=== PATIENT | female | born 1985 | race Caucasian/White ===

== ENCOUNTER 2023-11-08 15:30 | Outpatient (CLI) | payer OTHER, SELFPAY ==
--- NOTE | ~2023-11-08 | XR_ITS ---
3 VIEWS PARANASAL SINUSES Ordering provider: Olga Suarez APRN History: . J34.9 - Unspecified disorder of nose and nasal sinuses . Comparison: None. FINDINGS: BONES: No acute fracture as visualized. PARANASAL SINUSES: Well aerated. No air fluid levels. SOFT TISSUES: Normal. IMPRESSION: NO EVIDENCE OF SINUS DISEASE. Reviewed, dictated and finalized at location A.
== END 2023-11-08 15:31 | disposition home or self-care (01) ==
LOC: ANHBWCIMG 15:31
PROVIDERS: PCP Nurse Practitioner Adult Health; Visit Provider Nurse Practitioner Adult Health
DX: J34.9 Unspecified disorder of nose and nasal sinuses (principal)
CPT/HCPCS: 70220

== ENCOUNTER 2024-05-23 08:06 | Outpatient (CLI) | payer OTHER, SELFPAY ==
--- OUTSIDE RECORDS SUMMARY | 2024-05-23 08:15 | XMS_ITS | Continuity of Care Document ---
Author Organization 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 [address] , [address], [place], [address], [place]. tel:[phone] Family History Family Member Type Diagnosis Age At Onset No Information Payers Payer name Insurance type Covered libertarian ID Authoriza tion(s) Medicaid [facility] [id number] Social History Type Description Quantity Date Captured Comments Sex Female Smoking Status No Information Chief Complaint And Reason For Visit No Information Reason For Referral Reason For Referral No Information History Of Present Illness Encounter Date Complaint History Of Prese nt Illness No Information Functional Status Date Functional Assessmen t No Information Instructions Date Instruction Additional Infor mation No Information Assessments Type Assessment Date No Information Patient Care Teams Name Effective Dates (start - stop) Status Members No Information
--- OUTSIDE RECORDS SUMMARY | 2024-05-23 08:15 | XMS_ITS | Data Portability ---
Author Organization [facility], Main Office Address [address] [place] [address] Assessment No assessment recorded. Plan of Treatment Reminders Order Date Submit Date Provider Last Modified By Organization Details Last Modified Time Details Appointments None recorded. Lab None recorded. Referral None recorded. Procedures None recorded. Surgeries None recorded. Imaging None recorded. Medication Orders spironolact one 50 mg tablet [address] [employer] #[id number], [address] [place], [place], [id number], 3 15:52:15 Mounjaro 5 mg/0.5 mL subcutaneou s pen injector 2022 023 [facility] [employer] #[id number], [address] [place], [place], [id number], 3 15:41:23 Unithroid 25 mcg tablet 2022 023 [facility] [employer] #[id number], [address] [place], [place], [id number], 3 15:46:38 Patient TargetsNo targets recorded. Patient InstructionsNo instructions recorded. Reason for Referral None Reported. Results Created Date Observation Date Name Description Value Unit Range Abnormal Flag Note LastModifiedBy Organization Detail LastModifiedTime 04/04/20 21 04/09/2021 SPECI MEN STATU S REPOR T specimen status report tnp [facility] was unabl e to colle ct suffi cient speci men to perfo rm the follo wing test( s), and is provi ding the patie nt with re-co llect ion instr uctio ns. Test not perfo rmed. Attem pts to conta ct your facil ity were unsuc cessf ul. TEST: 30417 1 DHEA- Sulfa te(2 Speci mens) 37539 8 Corti vinnie (3 Speci mens) Not Available [facility] ([facility]) [address] [facility], [place], [address], 04/09/2021 20:08:19 04/04/20 21 04/04/2021 AMBIG ABBRE V CMP14 DEFAU LT ambig abbrev CMP14 default commen t A hand- writt en panel /prof ile was recei naseem from your offic e. In accor dance with the [facility] Ambig uous Test Code Polic y dated October 2002, we have compl eted your order by using the close st curre ntly or forme rly recog nized AMA panel . We have assig lane Compr ehens dona Metab olic Panel (14), Test Code #32[address]. If this is not the testi ng you wishe d to recei ve on this speci men, pleas e conta ct the [facility] Clien t Inqui ry/Te chnic al Servi nancy Depar tment to patrice fy the test order . We appre ciate your busin ess. Not Available [facility] ([facility]) [address] [facility], [place], [address], 04/09/2021 20:08:18 04/04/20 21 04/05/2021 THYRO ID PEROX IDASE (TPO) AB thyroid peroxidase (tpo) Ab 11 IU/mL 0-34 Not Available [facility] ([facility]) [address] [facility], [place], [address], 04/09/2021 20:08:18 04/04/20 21 04/05/2021 INSUL IN insulin 41.5 uIU/m L 2.6-24 .9 above high normal Not Available [facility] ([facility]) [address] [facility], [place], [address], 04/09/2021 20:08:18 04/04/20 21 04/05/2021 VITAM IN D, 25-HY DROXY vitamin D, 25-hydroxy 21.1 NG/mL 30.0-1 00.0 below low normal Vitam in D defic iency has been defin ed by the Insti tute of Medic ine and an Endoc rine Socie ty pract ice guide line as a level of serum 25-OH vitam in D less than 20 ng/mL (1,2) . The Endoc rine Socie ty went on to furth er defin e vitam in D insuf ficie ncy as a level betwe en 21 and 29 ng/mL (2). 1. IOM (Inst itute of Medic ine). 2010. Dieta ry refer ence intak es for calci um and D. Mukul fitzpatrick [place]: The [facility] . 2. Colby simon MF, Emanuel corbin [place], Sharon off-F errar i SAWYER, et al. Evalu ation , treat ment, and preve ntion of vitam in D defic iency : an Endoc rine Socie ty clini barbara pract ice guide line. JCEM. 2010; 96(7) :1911 -30. Not Available [facility] ([facility]) [address] [facility], [place], [address], 04/09/2021 20:08:17 04/04/20 21 04/05/2021 ACTH, PLASM A acth, plasma 55.9 pg/mL 7.2-63 .3 ACTH refer ence inter cody for sampl es colle cted betwe en 7 and 10 AM. Not Available [facility] ([facility]) [address] [facility], [place], [address], 04/09/2021 20:08:17 04/04/20 21 04/05/2021 THYRO XINE (T4) FREE, DIREC T T4,free(dire ct) 0.91 NG/dL 0.82-1 .77 Not Available [facility] ([facility]) [address] [facility], [place], [address], 04/09/2021 20:08:16 04/04/20 21 04/07/2021 THYRO ID STIMU LATIN G HORMO NE TSH-icma 2.7 uu/mL Refer ence Range : Non-P regna nt Adult 0.450 -4.50 0 Pregn sade First Trime ster 0.100 -4.00 0 Secon d Trime ster 0.200 -4.00 0 Third Trime ster 0.300 -4.50 0 Not Available [facility] [address] [facility], [place], [address], 04/09/2021 20:08:16 04/04/20 21 04/09/2021 CORTI VINNIE (3 SPECI MENS) cortisol #1 (base) tnp ug/dL [facility] was unabl e to colle ct suffi cient speci men to perfo rm the follo wing test( s), and is provi ding the patie nt with re-co llect ion instr uctio ns. Corti vinnie AM 6.2 - 19.4 Corti vinnie PM 2.3 - 11.9 Not Available [facility] ([facility]) [address] [facility], [place], [address], 04/09/2021 20:08:16 04/04/20 21 04/09/2021 CORTI VINNIE (3 SPECI MENS) cortisol #2 tnp Test not perfo rmed Not Available [facility] ([facility]) [address] [place], [address], 04/09/2021 20:08:16 04/04/20 21 04/09/2021 CORTI VINNIE (3 SPECI MENS) cortisol #3 tnp Test not perfo rmed Not Available [facility] ([facility]) [address] [place], [address], 04/09/2021 20:08:16 04/04/20 21 04/07/2021 A1C W/GLY COMAR K(R) REFLE X Hb A1C diabetic assessment 5.6 %Hb Note: A refle x test was order ed on this speci men. If A1c resul ts are betwe en a value of 6.0 to 8.0 (incl uding 6.0 and 8.0), Glyco Alf testi ng is perfo rmed. Glyco Alf refle cts post prand ial gluco se spike s from the past 2 weeks , where as A1c refle cts avera ge glyce jamaal contr ol over the past 3 month s. Refer ence Range : Celia l: <5.7 Incre ased risk for diabe fanny: 5.7 - 6.4 Ongoi ng Hyper glyce paxton: >6.4 Glyce jamaal contr ol for adult s with diabe fanny: <7.0 (ADA) Not Available [facility] [address] [place], [address], 04/09/2021 20:08:15 04/04/20 21 04/07/2021 A1C W/GLY COMAR K(R) REFLE X estimated average glucose 114 mg/dL Not Available [facility] [address] [facility], [place], [address], 04/09/2021 20:08:15 04/04/20 21 04/07/2021 A1C W/GLY COMAR K(R) REFLE X glycomark(R) (1,5 Ag) tnp ug/mL Testi ng Not Indic ated Refle x not perfo rmed Glyco Alf( TM) is inten ded for use with manag ing glyce jamaal contr ol in diabe tic patie nts. A low resul t corre spond s to high gluco se peaks . 1, 5-AG blood level s can be affec zoran by clini barbara condi tions or medic ation s. Pleas e refer to the direc tory of servi nancy or [facility] websi te test menu for detai led list of limit ation s. Not Available [facility] [address] [facility], [place], [address], 04/09/2021 20:08:15 04/04/20 21 04/09/2021 DHEA- SULFA TE(2 SPECI MENS) DHEA-sulfate #1 tnp ug/dL [facility] was unabl e to colle ct suffi cient speci men to perfo rm the follo wing test( s), and is provi ding the patie nt with re-co llect ion instr uctio ns. 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 METAB OLIC PANEL (14) glucose 80 mg/dL 65-99 Not Available [facility] ([facility]) [address] [place], [address], 04/09/2021 20:08:14 04/04/20 21 04/05/2021 COMP. METAB OLIC PANEL (14) BUN 12 mg/dL 6-20 Not Available [facility] ([facility]) [address] [facility], [place], [address], 04/09/2021 20:08:14 04/04/20 21 04/05/2021 COMP. METAB OLIC PANEL (14) creatinine 0.77 mg/dL 0.57-1 .00 Not Available [facility] ([facility]) [address] [facility], [place], [address], 04/09/2021 20:08:14 04/04/20 21 04/05/2021 COMP. METAB OLIC PANEL (14) eGFR if nonafricn AM 102 mL/mi n/1.7 3 >59 Not Available [facility] ([facility]) [address] [facility], [place], [address], 04/09/2021 20:08:14 04/04/20 21 04/05/2021 COMP. METAB OLIC PANEL (14) eGFR if africn AM 117 mL/mi n/1.7 3 >59 In accor dance with recom menda tions from the NKF-A SN Task force , [facility] is in the proce ss of updat ing its eGFR calcu latio n to the 2020 CKD-E PI creat inine equat ion that estim ates kidne y funct ion witho ut a race varia ble. Not Available [facility] ([facility]) [address] [facility], [place], [address], 04/09/2021 20:08:14 04/04/20 21 04/05/2021 COMP. METAB OLIC PANEL (14) BUN/creatini ne ratio 16 9-23 Not Available [facility] ([facility]) [address] [facility], [place], [address], 04/09/2021 20:08:14 04/04/20 21 04/05/2021 COMP. METAB OLIC PANEL (14) sodium 138 mmol/ L 134-14 4 Not Available [facility] ([facility]) [address] [place], [address], 04/09/2021 20:08:14 04/04/20 21 04/05/2021 COMP. METAB OLIC PANEL (14) potassium 4.4 mmol/ L 3.5-5. 2 Not Available [facility] ([facility]) [address] [facility], [address], 04/09/2021 20:08:14 04/04/20 21 04/05/2021 COMP. METAB OLIC PANEL (14) chloride 102 mmol/ L 96-106 Not Available [facility] ([facility]) [address] [facility], [place], [address], 04/09/2021 20:08:14 04/04/20 21 04/05/2021 COMP. METAB OLIC PANEL (14) carbon dioxide, total 24 mmol/ L 20-29 Not Available [facility] ([facility]) [address] [place], [address], 04/09/2021 20:08:14 04/04/20 21 04/05/2021 COMP. METAB OLIC PANEL (14) calcium 9.4 mg/dL 8.7-10 .2 Not Available [facility] ([facility]) [address] [place], [address], 04/09/2021 20:08:14 04/04/20 21 04/05/2021 COMP. METAB OLIC PANEL (14) protein, total 6.8 g/dL 6.0-8. 5 Not Available [facility] ([facility]) [address] [place], [address], 04/09/2021 20:08:14 04/04/20 21 04/05/2021 COMP. METAB OLIC PANEL (14) albumin 4.3 g/dL 3.8-4. 8 Not Available [facility] ([facility]) [address] [facility], [address], 04/09/2021 20:08:14 04/04/20 21 04/05/2021 COMP. METAB OLIC PANEL (14) globulin, total 2.5 g/dL 1.5-4. 5 Not Available [facility] ([facility]) [address] [facility], [address], 04/09/2021 20:08:14 04/04/20 21 04/05/2021 COMP. METAB OLIC PANEL (14) A/G ratio 1.7 1.2-2. 2 Not Available [facility] ([facility]) [address] [facility], [place], [address], 04/09/2021 20:08:14 04/04/20 21 04/05/2021 COMP. METAB OLIC PANEL (14) bilirubin, total 0.6 mg/dL 0.0-1. 2 Not Available [facility] ([facility]) [address] [facility] [place], [address], 04/09/2021 20:08:14 04/04/20 21 04/05/2021 COMP. METAB OLIC PANEL (14) alkaline phosphatase 71 IU/L 44-121 Ple ase note refer ence mode gutierres e Not Available [facility] ([facility]) [address] [facility], [address], 04/09/2021 20:08:14 04/04/20 21 04/05/2021 COMP. METAB OLIC PANEL (14) AST (SGOT) 22 IU/L 0-40 Not Available [facility] ([facility]) [address] [facility], [place], [address], 04/09/2021 20:08:14 04/04/20 21 04/05/2021 COMP. METAB OLIC PANEL (14) ALT (SGPT) 38 IU/L 0-32 above high normal Not Available [facility] ([facility]) [address] [facility], [place], [address], 04/09/2021 20:08:14 04/04/20 21 04/05/2021 CBC/D IFF AMBIG UOUS DEFAU LT WBC 7.1 x10e3 /uL 3.4-10 .8 Not Available [facility] ([facility]) [address] [facility], [place], [address], 04/09/2021 20:08:14 04/04/20 21 04/05/2021 CBC/D IFF AMBIG UOUS DEFAU LT RBC 4.60 x10e6 /uL 3.77-5 .28 Not Available [facility] ([facility]) [address] [facility], [place], [address], 04/09/2021 20:08:14 04/04/20 21 04/05/2021 CBC/D IFF AMBIG UOUS DEFAU LT hemoglobin 13.7 g/dL 11.1-1 5.9 Not Available [facility] ([facility]) [address] [facility], [place], [address], 04/09/2021 20:08:14 04/04/20 21 04/05/2021 CBC/D IFF AMBIG UOUS DEFAU LT hematocrit 42.0 % 34.0-4 6.6 Not Available [facility] ([facility]) [address] [facility], [place], [address], 04/09/2021 20:08:14 04/04/20 21 04/05/2021 CBC/D IFF AMBIG UOUS DEFAU LT MCV 91 fL 79-97 Not Available [facility] ([facility]) [address] [facility], [place], [address], 04/09/2021 20:08:14 04/04/20 21 04/05/2021 CBC/D IFF AMBIG UOUS DEFAU LT MCH 29.8 pg 26.6-3 3.0 Not Available [facility] ([facility]) [address] [facility], [place], [address], 04/09/2021 20:08:14 04/04/20 21 04/05/2021 CBC/D IFF AMBIG UOUS DEFAU LT MCHC 32.6 g/dL 31.5-3 5.7 Not Available [facility] ([facility]) [address] [facility], [place], [address], 04/09/2021 20:08:14 04/04/20 21 04/05/2021 CBC/D IFF AMBIG UOUS DEFAU LT RDW 12.9 % 11.7-1 5.4 Not Available [facility] ([facility]) [address] [facility], [place], [address], 04/09/2021 20:08:14 04/04/20 21 04/05/2021 CBC/D IFF AMBIG UOUS DEFAU LT platelets 290 x10e3 /uL 150-45 0 Not Available [facility] ([facility]) [address] [facility], [place], [address], 04/09/2021 20:08:14 04/04/20 21 04/05/2021 CBC/D IFF AMBIG UOUS DEFAU LT neutrophils 63 % not estab. Not Available [facility] ([facility]) [address] [facility], [place], [address], 04/09/2021 20:08:14 04/04/20 21 04/05/2021 CBC/D IFF AMBIG UOUS DEFAU LT lymphs 28 % not estab. Not Available [facility] ([facility]) [address] [facility], [place], [address], 04/09/2021 20:08:14 04/04/20 21 04/05/2021 CBC/D IFF AMBIG UOUS DEFAU LT monocytes 7 % not estab. Not Available [facility] ([facility]) [address] [facility], [place], [address], 04/09/2021 20:08:14 04/04/20 21 04/05/2021 CBC/D IFF AMBIG UOUS DEFAU LT eos 1 % not estab. Not Available [facility] ([facility]) [address] [facility], [place], [address], 04/09/2021 20:08:14 04/04/20 21 04/05/2021 CBC/D IFF AMBIG UOUS DEFAU LT basos 1 % not estab. Not Available [facility] ([facility]) [address] [place], [address], 04/09/2021 20:08:14 04/04/20 21 04/05/2021 CBC/D IFF AMBIG UOUS DEFAU LT immature cells autistic teacher Not Available [facility] ([facility]) [address] [place], [address], 04/09/2021 20:08:14 04/04/20 21 04/05/2021 CBC/D IFF AMBIG UOUS DEFAU LT neutrophils (absolute) 4.5 x10e3 /uL 1.4-7. 0 Not Available [facility] ([facility]) [address] [place], [address], 04/09/2021 20:08:14 04/04/20 21 04/05/2021 CBC/D IFF AMBIG UOUS DEFAU LT lymphs (absolute) 2.0 x10e3 /uL 0.7-3. 1 Not Available [facility] ([facility]) [address] [place], [address], 04/09/2021 20:08:14 04/04/20 21 04/05/2021 CBC/D IFF AMBIG UOUS DEFAU LT monocytes(ab solute) 0.5 x10e3 /uL 0.1-0. 9 Not Available [facility] ([facility]) [address] [place], [address], 04/09/2021 20:08:14 04/04/20 21 04/05/2021 CBC/D IFF AMBIG UOUS DEFAU LT eos (absolute) 0.1 x10e3 /uL 0.0-0. 4 Not Available [facility] ([facility]) [address] [facility], [place], [address], 04/09/2021 20:08:14 04/04/20 21 04/05/2021 CBC/D IFF AMBIG UOUS DEFAU LT baso (absolute) 0.1 x10e3 /uL 0.0-0. 2 Not Available [facility] ([facility]) [address] [facility], [place], [address], 04/09/2021 20:08:14 04/04/20 21 04/05/2021 CBC/D IFF AMBIG UOUS DEFAU LT immature granulocytes 0 % not estab. Not Available [facility] ([facility]) [address] [place], [address], 04/09/2021 20:08:14 04/04/20 21 04/05/2021 CBC/D IFF AMBIG UOUS DEFAU LT immature grans (abs) 0.0 x10e3 /uL 0.0-0. 1 Not Available [facility] ([facility]) [address] [facility], [place], [address], 04/09/2021 20:08:14 04/04/20 21 04/05/2021 CBC/D IFF AMBIG UOUS DEFAU LT NRBC autistic teacher Not Available [facility] ([facility]) [address] [facility], [place], [address], 04/09/2021 20:08:14 04/04/20 21 04/05/2021 CBC/D IFF AMBIG UOUS DEFAU LT hematology comments: autistic teacher A hand- writt en panel /prof ile was recei naseem from your offic e. In accor dance with the [facility] Teresita nugent Test Code Polic y dated October 2002, we have assig lane CBC with Diffnavid alvarez al/Linda haywood, Test Code #[address]. If this is not the testi ng you wishe d to recei ve on this speci men, pleas e conta ct the [facility] Clien t Inqui ry/ Techn ical Servi anncy Depar tment to patrice fy the test order . We appre ciate your busin ess. Not Available [facility] ([facility]) [address] [facility], [place], [address], 04/09/2021 20:08:14 04/04/20 21 04/05/2021 FE+TI BC+FE R iron bind.cap.(TI BC) 340 ug/dL 250-45 0 Not Available [facility] ([facility]) [address] [place], [address], 04/09/2021 20:08:13 04/04/20 21 04/05/2021 FE+TI BC+FE R UIBC 236 ug/dL 131-42 5 Not Available [facility] ([facility]) [address] [place], [address], 04/09/2021 20:08:13 04/04/20 21 04/05/2021 FE+TI BC+FE R iron 104 ug/dL 27-159 Not Available [facility] ([facility]) [address] [place], [address], 04/09/2021 20:08:13 04/04/20 21 04/05/2021 FE+TI BC+FE R iron saturation 31 % 15-55 Not Available [facility] ([facility]) [address] [place], [address], 04/09/2021 20:08:13 04/04/20 21 04/05/2021 FE+TI BC+FE R ferritin 81 NG/mL 15-150 Not Available [facility] ([facility]) [address], [place], [address], 04/09/2021 20:08:13 04/30/19 22 05/02/2021 SARS- COV-2 (COVI D-19) , KORY/L C sars cov-2 (covid-19) RNA, KORY not detect ed not detect ed This nucle ic acid ampli ficat ion test was devel oped and its perfo rmanc e seymour cteri stics deter mined by [facility] Labor atori es. Nucle ic acid ampli ficat ion tests inclu de RT- PCR and TMA. This test has not been FDA clear ed or appro naseem. This test has been autho rized by FDA under an Emerg ency Use Autho rizat ion (EUA) . This test is only autho rized for the durat ion of time the decla ratio n that circu mstan nancy exist justi fying the autho rizat ion of the emerg ency use of in vitro diagn ostic tests for detec tion of SARS- CoV-2 virus and/o r diagn osis of COVID -19 infec tion under secti on 564(b )(1) of the Act, 21 U.S.C . 360bb b-3(b ) (1), unles s the autho rizat ion is termi nated or revok ed soone r. When diagn ostic testi ng is negat dona, the possi bilit y of a false negat dona resul t shoul d be consi dered in the gideon xt of a patie nt's recen t expos ures and the prese nce of clini barbara signs and sympt oms consi stent with COVID -19. An indiv idual witho ut sympt oms of COVID -19 and who is not alicia ing SARS- CoV-2 virus would expec t to have a negat dona (not detec zoran) resul t in this assay . Perfo rmed at: [facility] [place] [address], [place] [address] [address] Lab Direc tor: George farley MD, Phone : [phone] Not Available [facility] (Lab) [address] [place], [address], 05/02/2021 16:14:28 04/30/19 22 05/02/2021 SARS- COV-2 (COVI D-19) , KORY/L C sars-cov-2 KORY 2 day tat perfor med Perfo rmed at: [facility] [place] [address] Lab Direc tor: Dino moffett PhD, Phone : [phone] Not Available [facility] (Lab) [address] [place], [address], 05/02/2021 16:14:28 08/19/19 23 08/18/2022 COMPR EHENS DONA METAB OLIC PANEL sodium 140 mmol/ L 137-14 5 Not Available [facility] (Lab) [address] [place], [address], 08/18/2022 13:01:51 08/19/19 23 08/18/2022 COMPR EHENS DONA METAB OLIC PANEL potassium 4.3 mmol/ L 3.5-5. 1 Not Available [facility] (Lab) [address] [place], [address], 08/18/2022 13:01:51 08/19/19 23 08/18/2022 COMPR EHENS DONA METAB OLIC PANEL chloride 104 mmol/ L 98-107 Not Available [facility] (Lab) [address] [place], [address], 08/18/2022 13:01:51 08/19/19 23 08/18/2022 COMPR EHENS DONA METAB OLIC PANEL carbon dioxide 27 mmol/ L 22-30 Not Available [facility] (Lab) [address] [place], [address], 08/18/2022 13:01:51 08/19/19 23 08/18/2022 COMPR EHENS DONA METAB OLIC PANEL anion gap 13.3 mmol/ L 14-22 low Not Available [facility] (Lab) [address] [place], [address], 08/18/2022 13:01:51 08/19/19 23 08/18/2022 COMPR EHENS DONA METAB OLIC PANEL glucose 97 mg/dL 70-99 Not Available [facility] (Lab) [address] [place], [address], 08/18/2022 13:01:51 08/19/19 23 08/18/2022 COMPR EHENS DONA METAB OLIC PANEL BUN 9 mg/dL 8-19 Not Available [facility] (Lab) [address] [place], [address], 08/18/2022 13:01:51 08/19/19 23 08/18/2022 COMPR EHENS DONA METAB OLIC PANEL creatinine 0.82 mg/dL 0.66-1 .25 Not Available [facility] (Lab) [address] [place], [address], 08/18/2022 13:01:51 08/19/19 23 08/18/2022 COMPR EHENS DONA METAB OLIC PANEL GFR >60 Refer ence Range : [place] ge GFR Healt hy Adult : >60 mL/mi n/1.7 3 m2 Chron ic Kidne y Disea se: 15-60 mL/mi n/1.7 3 m2 Kidne y Failu re: <15/m L/min /1.73 m2 [email or web address] [email or web address] nih.g ov The MDRD study equat ion has not been valid ated in child rocio <18 years of age; pregn ant women ; the elder ly >85 years of age; or in some racia l or ethni c subgr oups, such as Hispa nics. Outsi de the valid ated noah eters , estim ated GFR is less accur ate, requi ring clini barbara judgm ent on a case- by-ca se basis . Clini barbara inter preta tion for other races and ages must be made by the clini bobby. The MDRD study equat ion has not been valid ated for the evalu ation of serum creat inine relat ed to nutri keri l statu s or medic ation usage . For perso ns <18 years of age, a pedia tric GFR calcu lator is avail able on the [facility] websi te: https ://shagufta w.ninoska rivas.o rg/pr ofess ional s/kdo qi/gf r_cal culat or Not Available [facility] (Lab) [address] [place], [address], 08/18/2022 13:01:51 08/19/19 23 08/18/2022 COMPR EHENS DONA METAB OLIC PANEL alkaline phosphatase 61 U/L 38-126 Not Available [facility] (Lab) [address] [place], [address], 08/18/2022 13:01:51 08/19/19 23 08/18/2022 COMPR EHENS DONA METAB OLIC PANEL alanine aminotransfe rase 64 U/L 0-35 high Not Available [facility] (Lab) [address] [place], [address], 08/18/2022 13:01:51 08/19/19 23 08/18/2022 COMPR EHENS DONA METAB OLIC PANEL aspartate aminotransfe rase 34 U/L 15-37 Not Available [facility] (Lab) [address] [place], [address], 08/18/2022 13:01:51 08/19/19 23 08/18/2022 COMPR EHENS DONA METAB OLIC PANEL bilirubin, total 0.60 mg/dL 0.20-1 .30 Not Available [facility] (Lab) [address] [place], [address], 08/18/2022 13:01:51 08/19/19 23 08/18/2022 COMPR EHENS DONA METAB OLIC PANEL calcium 9.4 mg/dL 8.4-10 .2 Not Available [facility] (Lab) [address] [place], [address], 08/18/2022 13:01:51 08/19/19 23 08/18/2022 COMPR EHENS DONA METAB OLIC PANEL total protein 7.3 g/dL 6.3-8. 2 Not Available [facility] (Lab) [address] [place], [address], 08/18/2022 13:01:51 08/19/19 23 08/18/2022 COMPR EHENS DONA METAB OLIC PANEL albumin 4.2 g/dL 3.4-5. 0 Not Available [facility] (Lab) [address] [place], [address], 08/18/2022 13:01:51 08/19/19 23 08/18/2022 COMPR EHENS DONA METAB OLIC PANEL globulin 3.1 g/dL 2.6-4. 2 Not Available [facility] (Lab) [address] [place], [address], 08/18/2022 13:01:51 08/19/19 23 08/18/2022 COMPR EHENS DONA METAB OLIC PANEL A/G ratio 1.4 ratio 1.0-2. 0 Not Available [facility] (Lab) [address] [place], [address], 08/18/2022 13:01:51 08/19/19 23 08/18/2022 IRON/ TIBC PANEL total iron binding capacity 360 mcg/d L 265-47 5 Not Available [facility] (Lab) [address] [place], [address], 08/18/2022 13:09:26 08/19/19 23 08/18/2022 IRON/ TIBC PANEL % transferrin saturation 31 % 20-55 Not Available [facility] (Lab) [address] [place], [address], 08/18/2022 13:09:26 08/19/19 23 08/18/2022 IRON/ TIBC PANEL unsaturated iron bind capacity 247 mcg/d L 126-38 2 Not Available [facility] (Lab) [address] [place], [address], 08/18/2022 13:09:26 08/19/19 23 08/18/2022 IRON/ TIBC PANEL iron 113 mcg/d L 42-175 Not Available [facility] (Lab) [address] [place], [address], 08/18/2022 13:09:26 08/19/19 23 08/18/2022 T4 FREE free T4 0.88 NG/dL 0.78-2 .19 Not Available [facility] (Lab) [address] [place], [address], 08/18/2022 13:16:23 08/19/19 23 08/18/2022 TSH thyroid-stim ulating hormone 2.170 uIU/m L 0.465- 4.680 Not Available [facility] (Lab) [address] [place], [address], 08/18/2022 13:17:04 08/19/19 23 08/18/2022 HEMOG LOBIN A1C HA1C 5.4 % 4.0-6. 0 Diabe fanny Scree burt Crite leon: <5.7% Consi stent with absen ce of diabe fanny 5.7-6 .4% Consi stent with incre ased risk for diabe fanny (pred iabet es) >OR=6 .5% Consi stent with diabe fanny REFER ENCE: Diabe fanny Care 2015, 39(Aranda ppl.1 ):s13 -s22 Not Available [facility] (Lab) [address] [place], [address], 08/18/2022 13:30:58 08/19/19 23 08/18/2022 T3 FREE free T3 3.7 pg/mL 2.77-5 .27 Not Available [facility] (Lab) [address] [place] [address], [address], 08/18/2022 15:00:47 08/19/19 23 08/19/2022 DHEA- SULFA TE DHEA-sulfate 85.7 ug/dL 84.8-3 78.0 Perfo rmed at: [address] [id number] Lab Direc tor: Dino moffett PhD, Phone : [phone] Not Available [facility] (Lab) [address] [place] [address], [address], 08/19/2022 09:14:08 08/19/19 23 08/19/2022 THYRO ID PEROX IDASE (TPO) AB thyroid peroxidase (tpo) Ab 15 IU/mL 0-34 Perfo rmed at: [id number] [place] [address] Lab Direc tor: Dino moffett PhD, Phone : [phone] Not Available [facility] (Lab) [address] [place] [address], [address], 08/19/2022 09:14:09 08/19/19 23 08/19/2022 INSUL IN insulin 62.3 uIU/m L 2.6-24 .9 high Perfo rmed at: [id number] [place] [address] Lab Direc tor: Dino moffett PhD, Phone : [phone] Not Available [facility] (Lab) [address] [place] [address], [address], 08/19/2022 12:12:16 08/19/19 23 08/25/2022 TESTO STERO NE, FREE+ TOTAL LC/MS testosterone , total, lc/MS 39.8 NG/dL 10.0-5 5.0 Not Available [facility] (Lab) [address] [place], [address], 08/25/2022 11:12:44 08/19/19 23 08/25/2022 TESTO STERO NE, FREE+ TOTAL LC/MS testosterone , free 0.47 NG/dL 0.10-0 .85 Not Available [facility] (Lab) [address] [place], [address], 08/25/2022 11:12:44 08/19/19 23 08/25/2022 TESTO STERO NE, FREE+ TOTAL LC/MS % free testosterone 1.19 % 0.50-2 .80 Perfo rmed at: [facility] [place] [address] [facility] , [place] [address] Lab Direc tor: Lucia colunga MD, Phone : [phone] Not Available [facility] (Lab) [address] [place], [address], 08/25/2022 11:12:44 11/11/19 23 11/10/2022 COMPR EHENS DONA METAB OLIC PANEL sodium 139 mmol/ L 137-14 5 Not Available [facility] (Lab) [address] [place], [address], 11/10/2022 11:55:26 11/11/19 23 11/10/2022 COMPR EHENS DONA METAB OLIC PANEL potassium 4.4 mmol/ L 3.5-5. 1 Not Available [facility] (Lab) [address] [place], [address], 11/10/2022 11:55:26 11/11/19 23 11/10/2022 COMPR EHENS DONA METAB OLIC PANEL chloride 102 mmol/ L 98-107 Not Available [facility] (Lab) [address] [place], [address], 11/10/2022 11:55:26 11/11/19 23 11/10/2022 COMPR EHENS DONA METAB OLIC PANEL carbon dioxide 26 mmol/ L 22-30 Not Available [facility] (Lab) [address] [place], [address], 11/10/2022 11:55:26 11/11/19 23 11/10/2022 COMPR EHENS DONA METAB OLIC PANEL anion gap 15.4 mmol/ L 14-22 Not Available [facility] (Lab) [address] [place], [address], 11/10/2022 11:55:26 11/11/19 23 11/10/2022 COMPR EHENS DONA METAB OLIC PANEL glucose 93 mg/dL 70-99 Not Available [facility] (Lab) [address] [place], [address], 11/10/2022 11:55:26 11/11/19 23 11/10/2022 COMPR EHENS DONA METAB OLIC PANEL BUN 14 mg/dL 8-19 Not Available [facility] (Lab) [address] [place], [address], 11/10/2022 11:55:26 11/11/19 23 11/10/2022 COMPR EHENS DONA METAB OLIC PANEL creatinine 0.86 mg/dL 0.66-1 .25 Not Available [facility] (Lab) [address] [place], [address], 11/10/2022 11:55:26 11/11/19 23 11/10/2022 COMPR EHENS DONA METAB OLIC PANEL GFR >60 Refer ence Range : [place] GFR Healt hy Adult : >60 mL/mi n/1.7 3 m2 Chron ic Kidne y Disea se: 15-60 mL/mi n/1.7 3 m2 Kidne y Failu re: <15/m L/min /1.73 m2 www.n iddk. nih.g ov The MDRD study equat ion has not been valid ated in child rocio <18 years of age; pregn ant women ; the elder ly >85 years of age; or in some racia l or ethni c subgr oups, such as Hispa nics. Outsi de the valid ated noah eters , estim ated GFR is less accur ate, requi ring clini barbara judgm ent on a case- by-ca se basis . Clini barbara inter preta tion for other races and ages must be made by the clini bobby. The MDRD study equat ion has not been valid ated for the evalu ation of serum creat inine relat ed to nutri keri l statu s or medic ation usage . For perso ns <18 years of age, a pedia tric GFR calcu lator is avail able on the [facility] websi te: https ://shagufta rivas.o aashish/pr sarahess ional s/kdo qi/gf r_cal culat or Not Available [facility] (Lab) [address] [place], [address], 11/10/2022 11:55:26 11/11/19 23 11/10/2022 COMPR EHENS DONA METAB OLIC PANEL alkaline phosphatase 57 U/L 38-126 Not Available [facility] (Lab) [address] [place], [address], 11/10/2022 11:55:26 11/11/19 23 11/10/2022 COMPR EHENS DONA METAB OLIC PANEL alanine aminotransfe rase 37 U/L 0-35 high Not Available [facility] (Lab) [address] [place], [address], 11/10/2022 11:55:26 11/11/19 23 11/10/2022 COMPR EHENS DONA METAB OLIC PANEL aspartate aminotransfe rase 27 U/L 15-37 Not Available [facility] (Lab) [address] [place], [address], 11/10/2022 11:55:26 11/11/19 23 11/10/2022 COMPR EHENS DONA METAB OLIC PANEL bilirubin, total 0.40 mg/dL 0.20-1 .30 Not Available [facility] (Lab) [address] [place], [address], 11/10/2022 11:55:26 11/11/19 23 11/10/2022 COMPR EHENS DONA METAB OLIC PANEL calcium 9.4 mg/dL 8.4-10 .2 Not Available [facility] (Lab) [address] [place], [address], 11/10/2022 11:55:26 11/11/19 23 11/10/2022 COMPR EHENS DONA METAB OLIC PANEL total protein 7.5 g/dL 6.3-8. 2 Not Available [facility] (Lab) [address] [place], [address], 11/10/2022 11:55:26 11/11/19 23 11/10/2022 COMPR EHENS DONA METAB OLIC PANEL albumin 4.3 g/dL 3.4-5. 0 Not Available [facility] (Lab) [address] [place], [address], 11/10/2022 11:55:26 11/11/19 23 11/10/2022 COMPR EHENS DONA METAB OLIC PANEL globulin 3.2 g/dL 2.6-4. 2 Not Available [facility] (Lab) [address] [place], [address], 11/10/2022 11:55:26 11/11/19 23 11/10/2022 COMPR EHENS DONA METAB OLIC PANEL A/G ratio 1.3 ratio 1.0-2. 0 Not Available [facility] (Lab) [address] [place], [address], 11/10/2022 11:55:26 11/11/19 23 11/10/2022 IRON/ TIBC PANEL total iron binding capacity 373 mcg/d L 265-47 5 Not Available [facility] (Lab) [address] [place], [address], 11/10/2022 12:12:20 11/11/19 23 11/10/2022 IRON/ TIBC PANEL % transferrin saturation 18 % 20-55 low Not Available [facility] (Lab) [address] [place], [address], 11/10/2022 12:12:20 11/11/19 23 11/10/2022 IRON/ TIBC PANEL unsaturated iron bind capacity 306 mcg/d L 126-38 2 Not Available [facility] (Lab) [address] [place], [address], 11/10/2022 12:12:20 11/11/19 23 11/10/2022 IRON/ TIBC PANEL iron 67 mcg/d L 42-175 Not Available [facility] (Lab) [address] [place], [address], 11/10/2022 12:12:20 11/11/19 23 11/10/2022 T3 FREE free T3 4.4 pg/mL 2.77-5 .27 Not Available [facility] (Lab) [address] [place], [address], 11/10/2022 12:12:28 11/11/19 23 11/10/2022 T4 FREE free T4 1.02 NG/dL 0.78-2 .19 Not Available [facility] (Lab) [address] [place], [address], 11/10/2022 12:12:30 11/11/19 23 11/10/2022 TSH thyroid-stim ulating hormone 2.080 uIU/m L 0.465- 4.680 Not Available [facility] (Lab) [address] [place], [address], 11/10/2022 12:20:44 11/11/19 23 11/10/2022 HEMOG LOBIN A1C HA1C 5.3 % 4.0-6. 0 Diabe fanny Mayoe burt Crite leon: <5.7% Consi stent with absen ce of diabe fanny 5.7-6 .4% Consi stent with incre ased risk for diabe fanny (pred iabet es) >OR=6 .5% Consi stent with diabe fanny REFER ENCE: Diabe fanny Care 2016, 39(Aranda ppl.1 ):s13 -s22 Not Available [facility] (Lab) [address] [place], [address], 11/10/2022 17:44:01 11/11/1911/11/2022 THYRO ID PEROX IDASE (TPO) AB thyroid peroxidase (tpo) Ab 10 IU/mL 0-34 Perfo rmed at: [address] [address] Lab Direc tor: Dino moffett PhD, Phone : [phone] Not Available [facility] (Lab) [address] [place], [address], 11/11/2022 09:18:57 11/11/1911/11/2022 INSUL IN insulin 42.7 uIU/m L 2.6-24 .9 high Perfo rmed at: [address] [address] Lab Direc tor: Dino moffett PhD, Phone : [phone] Not Available [facility] (Lab) [address] [place], [address], 11/11/2022 10:17:57 11/11/19 23 11/11/2022 DHEA- SULFA TE DHEA-sulfate 100.0 ug/dL 57.3-2 79.2 Perfo rmed at: [place] [id number] [facility] [place] [address] Lab Direc tor: Dino moffett PhD, Phone : [phone] Not Available [facility] (Lab) [address] [place], [address], 11/11/2022 12:17:09 11/11/1911/16/2022 TESTO STERO NE, FREE+ TOTAL LC/MS testosterone , total, lc/MS 37.9 NG/dL 10.0-5 5.0 Not Available [facility] (Lab) [address] [place], [address], 11/16/2022 03:35:48 11/11/1911/16/2022 TESTO STERO NE, FREE+ TOTAL LC/MS testosterone , free 0.61 NG/dL 0.10-0 .85 Not Available [facility] (Lab) [address] [place], [address], 11/16/2022 03:35:48 11/11/1911/16/2022 TESTO STERO NE, FREE+ TOTAL LC/MS % free testosterone 1.60 % 0.50-2 .80 Perfo rmed at: [facility] [place] [address] [facility] , [place] [address] Lab Direc tor: Lucia colunga MD, Phone : [phone] Not Available [facility] (Lab) [address] [place], [address], 11/16/2022 03:35:48 Result Notes None recorded. 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 090960471 Active 2021 Not Available [facility] 3 08:19:07 ACTH hypersecre tion 931458339 Active 2021 Not Available [facility] 3 08:19:07 Cortisol binding globulin low 995592281 Active 2020 Not Available [facility] 3 08:19:07 Malaise and fatigue 381560489 Active 2020 Not Available [facility] 3 08:19:07 Vaginal discharge 284002716 Completed Not Available [facility] 3 08:19:07 Vitamin D deficiency 99620265 Active 2020 Not Available [facility] 3 08:19:07 Attention deficit hyperactiv ity disorder, predominan tly inattentiv e type 60850749 Active 2019 Not Available [facility] 3 08:19:07 Arthritis 9914021 Active 2021 Not Available [facility] 3 08:19:07 Vaginal odor 699339795 Completed Not Available [facility] 3 08:19:07 Impaired fasting glycemia 320420620 Active 2021 Not Available [facility] 3 08:19:07 Sleep disorder 19831417 Active 2021 Not Available [facility] 3 08:19:08 Hypothyroi dism 09785196 Active 2021 Not Available [facility] 3 08:19:08 Bacterial vaginosis 765408775 Completed Not Available [facility] 3 08:19:08 Anxiety 37419048 Completed Not Available [facility] 3 08:19:08 Dysuria 62917709 Completed Not Available [facility] 3 08:19:08 Diarrhea 59140730 Active 2021 Not Available [facility] 3 08:19:08 Closed fracture of head of radius 81233907 Completed Not Available [facility] 3 08:19:08 Liver enzymes level above reference range 918433497 Active 2021 Not Available [facility] 3 08:19:08 Urgent desire to urinate 75108649 Completed Not Available [facility] 3 08:19:08 32868269 Completed 201802/10/2019 Not Available [facility] 3 08:19:08 Irregular periods 34667920 Active 2021 Not Available [facility] 3 08:19:08 Hyperinsul inism 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 Procedures Surgical History Date Name Laterality Status Provider Name and Address Organization Details Recorded Time Orthopedic Surgery completed Not Available [facility] 06/17/2022 08:17:33 Imaging Results None recorded. Procedure Notes None recorded. Medical Equipment None Reported. Allergies Allergen ID Allergen Name Allergen Category Reaction Reaction Severity Criticality Documentation Date Start Date Code Code System Note Provider Name and Address Organization Details Recorded Time 66335 Latuda medicatio n other severe Not available 06/17/2022 11358 32 RxNorm nervo usnes s diffi culty w/det ermni ng time Not Available [facility] 3 08:21:56 [address] hydrocodo ne Not available itching moderate Not available 06/17/2022 5489 RxNorm Not Available [facility] 3 08:21:56 Medications Name Sig Start Date Stop Date Status Note LastModified by Organization Details LastModified Time fluoxetine 40 mg capsule TK 1 C PO QD IN THE MORNING 01/14 completed Not Available Not Available Not Available cyclobenza cornelio 10 mg tablet 11/26 completed Not Available Not Available Not Available Mirena 21 mcg/24 hr (up to 8 years) 52 mg intrauteri ne device Take 1 device by intrauter ine route. 12/04 completed Not Available Not Available Not Available methocarba mol 500 mg tablet active Not Available Not Available Not Available bupropion HCl SR 150 mg tablet,12 hr sustained- release TK 1 T PO BID 11/26 completed Not Available Not Available Not Available venlafaxin e ER 37.5 mg capsule,ex tended release 24 hr TAKE 1 CAPSULE PO D PRN FOR ANXIETY AND DEPRESSIO N active Not Available Not Available No t Available doxycyclin e hyclate 100 mg capsule Take 1 capsule twice a day by oral route for 10 days. 06/23 completed Not Available Not Available Not Available paroxetine 10 mg tablet TK 1 T PO ONCE D active Not Available Not Available No t Available divalproex 250 mg tablet,del ayed release active Not Available Not Available Not Available trazodone 50 mg tablet TAKE 1 TO 2 TABLETS PO QHS FOR DEPRESSIO N AND SLEEP active Not Available Not Available No t Available Stool Softener 100 mg capsule TK ONE C PO QD 03/07 completed Not Available Not Available Not Available azithromyc in 250 mg tablet 01/14 completed Not Available Not Available Not Available ibuprofen 800 mg tablet TK 1 T PO Q 8 H PRN 03/07 completed Not Available Not Available Not Available fluconazol e 150 mg tablet TAKE 1 TABLET BY MOUTH AT END OF AUGMENTIN AND REPEAT IN 72 HOURS 12/04 completed Not Available Not Available Not Available benzonatat e 200 mg capsule TAKE 1 CAPSULE BY MOUTH THREE TIMES DAILY 12/04 completed Not Available Not Available Not Available hydrocodon e 5 mg-acetami nophen 325 mg tablet active Not Available Not Available No t Available naltrexone 50 mg tablet active Not Available Not Available Not Available clonazepam 0.5 mg tablet TK 1/2 T PO BID PRN active Not Available Not Available No t Available spironolac tone 100 mg tablet active Not Available Not Available No t Available hydroxyzin e pamoate 50 mg capsule active Not Available Not Available Not Available metronidaz ole 500 mg tablet Take 1 tablet every 8 hours by oral route for 14 days. active Take 1 tab every 8 hours for 14 hours Not Available Not Available Not Available phentermin e 37.5 mg tablet TK 1 T PO QD FOR 30 DAYS 12/02 completed Not Available Not Available Not Available divalproex 500 mg tablet,del ayed release TK 1 T PO BID active Not Available Not Available No t Available valacyclov ir 500 mg tablet 06/23 completed Not Available Not Available Not Available ciprofloxa osmin 500 mg tablet Take 1 tablet every 12 hours by oral route. active Not Available Not Available No t Available sulfametho xazole 800 mg-trimeth oprim 160 mg tablet active Not Available Not Available No t Available lamotrigin e 25 mg tablet TAKE 1 TABLET BY MOUTH DAILY 12/04 completed Not Available Not Available Not Available carbamazep ine 200 mg tablet TAKE 1 TABLET PO BID active Not Available Not Available No t Available alprazolam 0.5 mg tablet Take 1 po daily prn active Not Available Not Available No t Available alprazolam 0.25 mg tablet TAKE 1 TABLET BY MOUTH EVERY DAY NEEDED 12/04 completed Not Available Not Available Not Available Metrogel Vaginal 0.75 % (37.5 mg/5 gram) Insert 1 applicato rful every day by vaginal route for 5 days. 03/17 completed Not Available Not Available Not Available dextroamph etamine-am phetamine ER 20 mg 24hr capsule,ex tend release TAKE 1 CAPSULE BY MOUTH EVERY DAY 12/04 completed Not Available Not Available Not Available dexamethas one 1 mg tablet TAKE 1 TABLET BY MOUTH AT 10 PM THE NIGHT BEFORE CORTISOL LAB TEST 12/04 completed Not Available Not Available Not Available phenazopyr idine 100 mg tablet 11/26 completed Not Available Not Available Not Available hydrocodon e 7.5 mg-acetami nophen 325 mg tablet active Not Available Not Available No t Available cephalexin 500 mg capsule active Not Available Not Available Not Available Unithroid 50 mcg tablet TAKE 1 TABLET BY MOUTH EVERY DAY IN THE MORNING active Not Available Not Available No t Available buspirone 10 mg tablet TK 1 T PO BID WITH FOOD active Not Available Not Available No t Available dextroamph etamine-am phetamine 20 mg tablet TK 1 T PO QD active Not Available Not Available No t Available Alrex 0.2 % eye drops,susp ension 08/05 completed Not Available Not Available Not Available gabapentin 300 mg capsule 11/26 completed Not Available Not Available Not Available dextroamph etamine-am phetamine ER 10 mg 24hr capsule,ex tend release TAKE 1 CAPSULE BY MOUTH EVERY DAY active Not Available Not Available No t Available cyanocobal llanes (vit B-12) 1,[address] 1 tablet every day by sublingua l route for 30 days. 09/10 completed Not Available Not Available Not Available Unithroid 25 mcg tablet TAKE 1 TABLET ON / S/WED/WED DAY ALONG WITH 2 TABLETS ON WED/WED/ RIDAY active Not Available Not Available No t Available ergocalcif robert (vitamin D2) 1,250 mcg (50,000 unit) capsule TAKE 1 CAPSULE BY MOUTH EVERY WEEK 12/04 completed Not Available Not Available Not Available methylpred nisolone 4 mg tablets in a dose pack FOLLOW PACKAGE DIRECTION S 12/04 completed Not Available Not Available Not Available hydroxyzin e HCl 10 mg tablet active Not Available Not Available No t Available fluoxetine 20 mg capsule TK ONE C PO QAM 11/26 completed Not Available Not Available Not Available metformin ER 500 mg tablet,ext ended release 24 hr TAKE 1 TABLET BY MOUTH EVERY DAY 12/04 completed Not Available Not Available Not Available risperidon e 1 mg tablet active Not Available Not Available Not Available drospireno ne 3 mg-ethinyl estradiol 0.03 mg tablet TK 1 T PO QD 08/05 completed Not Available Not Available Not Available lamotrigin e 100 mg tablet TK 1 T PO QD IN THE WHITLEY active Not Available Not Available No t Available phentermin e 37.5 mg capsule TK 1 C PO ONCE D IN THE MORNING 03/04 completed Not Available Not Available Not Available risperidon e 0.5 mg tablet TK 1 T PO BID UTD active Not Available Not Available No t Available spironolac tone 50 mg tablet Take 2 tablets every day by oral route in the morning for 90 days. 2022 active Not Available Not Available Not Avai lable amoxicilli n 875 mg-potassi um clavulanat e 125 mg tablet TAKE 1 TABLET BY MOUTH TWICE DAILY 12/04 completed Not Available Not Available Not Available amoxicilli n 500 mg-potassi um clavulanat e 125 mg tablet 11/26 completed Not Available Not Available Not Available buspirone 15 mg tablet TK 1 T PO TID UTD 08/05 completed Not Available Not Available Not Available bupropion HCl SR 200 mg tablet,12 hr sustained- release TK 1 T PO BID UTD 08/05 completed Not Available Not Available Not Available azithromyc in 500 mg tablet Take 1 tablet twice a day by oral route for 1 day. active Not Available Not Available No t Available escitalopr am 10 mg tablet TK 1 T PO QD 04/05 completed Not Available Not Available Not Available escitalopr am 20 mg tablet TAKE 1 TABLET BY MOUTH EVERY DAY IN THE MORNING 05/15 completed Not Available Not Available Not Available Strattera 40 mg capsule TK 2 CS PO QD active Not Available Not Available No t Available Mononessa (28) 0.25 mg-35 mcg tablet TAKE 1 TABLET BY MOUTH EVERY DAY 08/05 completed Not Available Not Available Not Available aripiprazo le 5 mg tablet TK 1 T PO QD HS 01/14 completed Not Available Not Available Not Available bupropion HCl XL 300 mg 24 hr tablet, extended release TK 1 T PO QD 05/25 completed Not Available Not Available Not Available bupropion HCl XL 150 mg 24 hr tablet, extended release active Not Available Not Available Not Available topiramate 50 mg tablet 11/26 completed Not Available Not Available Not Available tinidazole 500 mg tablet TK 4 TS PO ONCE DAILY FOR 7 DAYS 03/07 completed Not Available Not Available Not Available Reclipsen (28) 0.15 mg-0.03 mg tablet TK 1 T PO D 11/26 completed Not Available Not Available Not Available Xanax 06/28 completed Not Available Not Available Not Available Vyvanse 30 mg capsule TK ONE C PO QD AT NOON 11/26 completed Not Available Not Available Not Available Vyvanse 20 mg capsule Take 1 capsule every day by oral route for 30 days. active Not Available Not Available No t Available Vyvanse 40 mg capsule active Not Available Not Available N ot Available Azurette (28) 0.15 mg-0.02 mg (21)/0.01 mg (5) tablet Take 1 tablet every day by oral route. active Not Available Not Available No t Available Lo Loestrin Fe 1 mg-10 mcg (24)/10 mcg (2) tablet Take 1 tablet every day by oral route. active Not Available Not Available No t Available Next Choice One Dose 1.5 mg tablet FPD active Not Available Not Available No t Available Victoza 3-Donta 0.6 mg/0.1 mL (18 mg/3 mL) subcutaneo us pen injector Inject 0.6mg daily for 1 week then increase by 0.6mg weekly until at 1.8mg daily 12/30 completed Not Available Not Available Not Available Brintellix 20 mg tablet active Not Available Not Available Not Available PrePlus 27 mg iron-1 mg tablet TK 1 T PO QD 05/15 completed Not Available Not Available Not Available Jardiance 10 mg tablet Take 1 tablet every day by oral route for 30 days. active Not Available Not Available No t Available BD Mayte 2nd Gen Pen Needle 32 gauge x 32 USE WITH VICTOZA INJECTION 12/04 completed Not Available Not Available Not Available Rybelsus 14 mg tablet TAKE 1 TABLET BY MOUTH EVERY DAY 12/04 completed Not Available Not Available Not Available Rybelsus 7 mg tablet TAKE 1 TABLET BY MOUTH EVERY DAY 12/04 completed Not Available Not Available Not Available Mounjaro 5 mg/0.5 mL subcutaneo us pen injector Inject by subcutane ous route for 28 days. active Not Available Not Available No t Available Vitals Date Recorded Body mass index (BMI) Body mass index (BMI) Body height Body height Oxygen saturation Oxygen saturation in Arterial blood by Pulse oximetry Oxygen saturation Oxygen saturation in Arterial blood by Pulse oximetry Heart rate Heart rate Body temperature Body temperature Body weight Body weight Systolic blood pressure Diastolic blood pressure Systolic blood pressure Diastolic blood pressure Provider Name and Address Organization Details Last Updated DateTime 3 50.7 kg/m2 50.2 kg/m2 176.53 cm 176.53 cm 99 % 99 % 95 % 95 % 86 /min 77 /min 97.8 [degF] 97.8 [degF] 997834. 14 g 078174. 37 g 130 mm[Hg] 100 mm[Hg] 135 mm[Hg] 100 mm[Hg] Not Available [employer] 3 08:18:48 Date Recorded Body weight Body mass index (BMI) Body height Respiratory rate Body temperature Heart rate Systolic blood pressure Diastolic blood pressure Provider Name and Address Organization Details Last Updated DateTime 3 986710. 33 g 48.6 kg/m2 175.26 cm 14 /min 98 [degF] 74 /min 121 mm[Hg] 79 mm[Hg] Vanessa Colin RN [place] [employer] 3 15:28:41 Social History Question Answer Notes LastModified by Organizat ion Details LastModified Time Tobacco Smoking Status Never Smoker Dali kate [facility] 12/04/2022 15:20:35 What Is Your Level Of Alcohol Consumption? Occasional [id number] Information not available 06/17/2022 What Is Your Level Of Caffeine Consumption? Occasional [id number] Information not available 06/17/2022 In The 14 Days Before Symptom Onset, Have You Had Close Contact With A Laboratory-confir med COVID-19 While That Case Was Ill? No Information not available 12/04/2022 In The 14 Days Before Symptom Onset, Have You Had Close Contact With A Person Who Is Under Investigation For COVID-19 While That Person Was Ill? No Information not available 12/04/2022 What Type Of Diet Are You Following? 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 Single [id number] Information not available 06/17/2022 How Much Tobacco Do You Smoke? No [id number] Information not available 06/17/2022 Do You Use Any Illicit Or Recreational Drugs? No Information not available 12/04/2022 Have You Recently Traveled Abroad? No Information not available 12/04/2022 Sex: Female Functional Status Question Answer Note LastModified by Kera Details LastModified Time What is your exercise level? Occasional [id number] Information not available 06/17/2022 Mental Status None recorded. Family History Relationship Description Onset Age of this Age Resolved Age Notes LastModified by Organization Details LastModified Time Maternal Grandfather Diabetes mellitus [id number] Not available 06/17/2022 08:17:35 Mother Hypertensive disorder [id number] Not available 06/17/2022 08:17:35 Mother Heart disease [id number] Not available 06/17/2022 08:17:35 Mother Seizure disorder akovach Not available 2022 15:20:34 Paternal Uncle Malignant tumor of kidney akovach Not available 2022 15:20:35 Paternal Uncle Malignant neoplasm of skin akovach Not available 2022 15:20:35 Paternal Grandfather Malignant neoplasm of skin akovach Not available 2022 15:20:35 Paternal Grandmother Malignant neoplasm of skin akovach Not available 2022 15:20:35 Medical History Condition Response HEADACHES/MIGRAINES Y ANXIETY DISORDER Y OBESITY Y FEMALE PROBLEMS / INFECTIONS Y DEPRESSION (INCLUDING POST ) Y INSOMNIA Y HERPES Y Gynecological HistoryNo gynecological history recorded. Obstetrics History GPAL:G 0 P 0 0 0 0 Past Encounters Encounter ID Performer Location Encounter Start Date Encounter Closed Date Diagnosis/Indication Diagnosis SNOMED-CT Code Diagnosis ICD10 Code Diagnosis Note [id number] [facility] Selam jeffries [address] [place] [id number] 09/10/2020 00:00:00 09/10/2020 08:40:41 [id number] [facility] [place] [id number] 09/24/2020 00:00:00 12/30/2020 12:43:49 [id number] [facility] [place] n[place]ha [facility] [place] [id number] 12/30/2020 00:00:00 12/30/2020 12:44:11 [id number] [facility] Selam jeffries [address] [place] [id number] 04/03/2021 00:00:00 04/03/2021 12:57:33 [id number] _ATHENA_M IGRATION_ DEFAULT_1 _1 , 05/15/2021 00:00:00 05/15/2021 12:52:46 [id number] [facility] [address] [place] [id number] 07/08/2021 00:00:00 07/08/2021 10:57:20 [id number] [facility] [place] [address] [place] [id number] 10/21/2021 00:00:00 10/21/2021 18:20:09 [id number] Rayna Junior MD [facility] [place] [address] [place] [id number] 12/04/2022 15:18:36 12/04/2022 15:57:49 Hyperinsulinism 92154051 E16.1 Recommende d GLP1 agonist therapy as she is having trouble at times with cravings of sweets and portion control. She does exercise at least 3 days a week at 45 minutes a time. Discussed potentiall y reducing total carb intake to 120 grams daily into 4-5 small split meals with addition of healthy protein based snack at bedtime to help reduce senior svp hyperglyce paxton. She has no hx of pancreatit is or medullary thyroid cancer and is willing to trial on a GLP1 agonist therapy. She was advised to contact clinic if she experience s any nausea, vomiting or significan t thyroid pain / swelling or abdominal pain so we can discuss and discontinu e and potentiall y look to other therapy. Will trial on mounjaro 2.5 mg SQ weekly x 4 weeks then increase to 5 mg SQ weekly with largest meal of that day as tolerated. Hypothyroidism 54081158 E03.9 FT4 low normal range will uptitrate unithroid to 50 mcg on Mon/Wed/ ida and continue 25 mcg on all other days. She was reminded to take her unithroid on empty stomach with glass of water and wait one hour to eat or have her coffee in morning and up to 4 hours if ever taking any heartburn or reflux medication s to help optimize absorption . Discussed paleo like diet with restrictio n of GMOs to help with energy and to optimize absorption of vitamins and minerals and reduce inflammati on. Polycystic ovary syndrome [id number] E28.2 Continue on spironolac tone 100 mg daily as this has helped with hair loss. Mirena removed several months ago. Patient aware of teratogeni c effect and advised to use safe sex practices. The recommende d diet should be one of which she can incorporat e on a daily basis that will not modulate her lifestyle - discussed a diet of increased fiber; decreased refined carbohydra fanny, trans fats, and saturated fats with focus on monounsatu rated fats such as unprocesse d chicken, turkey, nuts (excluding peanuts) and beans. Spent up to 25 minutes preparing to see the patient (eg, review of tests), obtaining and/or reviewing separately obtained history, performing a medically appropriat e examinatio n and evaluation , counseling and educating the patient, ordering medication s, tests, along with documentin g clinical informatio n in the electronic health record, independen tly interpreti ng results and communicat ing results to the patient. Patient can be followed by PCP - she/he is aware of my resignatio n and last day of January 29. If needed his/her PCP can refer patient to another endocrinol ogist in the area. All questions /concerns answered and refills necessary at visit today. Health Concerns Section Related Observation LastModified by Organization Detai ls LastModified Time None Recorded Concern Status LastModified by Organization Details LastModified Time None Recorded Advance Directives Directive None Recorded Payers Encounter Date Sequence Insurance Name Policy Number Policy Shah Covered Member ID Shah Member ID Guarantor Name 12/04/2022 1 [facility] [id number] Nkechi I Rubens [id number] Nkechi I Rubens 12/04/2022 2 [place] [facility] Nkechi I Rubens [id number] Nkechi I Rubens Notes Date Note Type Note Provider Name and Address Organization Details Recorded Time 12/04/2022 text/html 37 yo female com es in for follow up in management of PCOS, hypothyroidism and impaired fasting glucose last seen in October 2021 at that time we added unithroid 25 mcg daily and continued spironolactone 100 mg daily. We increased rybelsus to 14 mg daily for glucose and weight control. She did not follow up that fall as recommended and just now coming in after one year. She dropped almost 20 pounds in the past year. She ended up stopping spironolactone and rybelsus-she had hair loss. She had mirena removed close to one month ago. She is taking unithroid 25 mcg daily. She never started the rybelsus. She never started taking rybelsus. Starting three months ago she started eating protein. In morning she will have cottage cheese, fruits and veggies; chicken sausage and breast in afternoon. Will have veggie and starch/meat for dinner.She gets up to 100 grams of protein a day. labs from 11/10/22:testosterone 37.9 ng/dLdheas 100 mcg/mlinsulin 42.7 uIU/mlTPO 10 IU/mlA1C of 5.3%TSH of 2.080 uIU/mlFT4 of 1.02 ng/dLFT3 of 4.4 pg/MLiron 18%glucose 93 mg/dLCr normalALT 37 U/L Rayna Junior MD [address] [facility], [facility] [address], [place], [address], [place] [employer] [facility] 12/04/2022 15:54:27 OBGyn Episode No OBEpisode recorded.
[2024-06-05 14:36] VITALS: BMI 40.8
--- NOTE | 2024-06-05 14:36 | P.SLEEP_ITS ---
Sleep Study - Home Unattended Date of Study: 05/23/24 Ordering Provider: Liz Lindsey DO Interpreting Provider: Liz Lindsey DO Home Sleep Study Type: Watch PAT Height: 1.75 m Weight: 125.645 kg Body Mass Index: 40.8 Neck Circumference (inches): 16 Watson: 5 Reason for Sleep Study Snoring, trouble falling/staying asleep Sleep History The patient is a 38-year-old female a sleep study ordered for evaluation of sleep apnea. The patient admits to snoring loudly, difficulty falling asleep and difficulty staying asleep. She admits to having interruptions in breathing while asleep. She does choke or gasp at night. She does have trouble breathing on her back. She denies morning headaches. She does have a dry or sore mouth/throat in the morning. He denies nocturnal heartburn. She denies noctu leon. She does have difficulty returning to sleep if she wakes up throughout the night. She denies any hypnotic or sedative use. She denies feeling anxious about sleep. She does feel tired or sleepy during the day. She does feel tired in the morning. She denies having the urge to fall asleep during the day. She denies feeling drowsy while driving. She denies sleep paralysis, cataplexy and hypnagogic/ hypnopompic hallucinations. He does clench or grind her teeth. She denies kicking or jerking her legs excessively. She denies having a restless feeling in her legs. She goes to bed at 11:00 p.m. on work days and at 11:45 p.m. on her days off. It takes her 30 minutes to fall asleep on work days and 1 hour on her days off. She gets 7 hours of sleep per night. Her sleep is somewhat restorative on her days off. She denies taking any planned naps. She denies dream enactment behavior. She denies sleep walking. She denies consuming caffeinated beverages throughout the day. She denies tobacco and alcohol use. She denies exercising on a regular basis. [facility] Past Medical History Medical History PCOS (polycystic ovarian syndrome) Damon's disease Trichomonas infection HSV (herpes simplex virus) anogenital infection Bipolar 1 disorder Depression Anxiety disorder Surgical History Surgical History H/O gynecological procedure Mirena iud insertion 03/21/2019 H/O toe surgery Family History Family History Grandparent Diabetes mellitus Skin cancer Mother Hypertension Heart disease Congestive heart failure Other Seizure disorder Malignant tumor of kidney Skin cancer Grandparent Diabetes mellitus Hypertension Grandparent History of ETOH abuse Skin cancer Hypertension Social History Social History Smoking status: Never smoker Alcohol intake: never Substance use: never Substance use type: does not use Lack of Transportation: No Lack of Food: Never True Current Housing: I Have Housing Concerned About Future Housing: No Difficulty Paying Gas/Electric Bills: No Difficulty Paying for Meds: No Currently Unemployed: No Education: Trade/Vocational Certificate Difficulty w/ Childcare or Family Care: No Living arrangements: with family Occupation/Education: occupation Gender identity (if verbalized by the patient): Female Medications Home Medications ?Medication ?Instructions ?Recorded ?Confirmed ?Type D-Chiro Inositol .Route 07/05/23 02/16/24 History medroxyprogesterone 10 mg tablet 10 mg PO DAILY #10 tabs 09/21/23 02/16/24 Rx (Provera) Berberine BYMOUTH 11/08/23 02/16/24 History spironolactone 100 mg tablet 100 mg PO DAILY #90 tabs 11/10/23 02/16/24 Rx cholecalciferol (vitamin D3) 125 125 mcg PO DAILY #30 caps 11/23/23 02/16/24 Rx mcg (5,000 unit) capsule Bridger-Inositol BYMOUTH .prn 12/23/23 02/16/24 History azelastine 137 mcg (0.1 %) nasal 137 mcg (0.137 mL) intranasal . 12/23/23 02/16/24 Rx spray q.h.s. chronic seasonal allergic rhinitis #30 mL omeprazole 40 mg capsule,delayed 40 mg PO DAILY laryngopharyngeal 12/23/23 02/16/24 Rx release reflux #30 caps tirzepatide (weight loss) 7.5 See Rx Instructions .Route 02/14/24 02/16/24 Rx mg/0.5 mL subcutaneous pen .COMPLEX #2 mL injector (Zepbound) eszopiclone 2 mg tablet (Lunesta) 2 mg PO QHS #1 tablet 02/16/24 02/16/24 Rx dextroamphetamine-amphetamine 5 mg 5 mg PO DAILY PRN focus in 04/20/24 Rx tablet (Adderall) afternoon #30 tabs dextroamphetamine-amphetamine ER 20 mg PO DAILY #30 caps 04/20/24 Rx 20 mg 24hr capsule,extend release (Adderall XR) tirzepatide (weight loss) 10 See Rx Instructions .Route 05/15/24 Rx mg/0.5 mL subcutaneous pen .COMPLEX #2 mL injector (Zepbound) levothyroxine 50 mcg tablet See Rx Instructions .Route 05/17/24 Rx .COMPLEX #90 tabs Sleep Procedure The sleep study was completed using WantworthyT a technically adequate device with seven channels: peripheral arterial tone, actigraphy, body position, snore, respiratory movement, pulse oximetry, sleep staging, and heart rate. Prior to using the device, the patient received verbal and written instructions for its application and was provided with the help desk phone number for additional telephonic instruction with 24-hour availability of qualified personnel to answer questions. The study was scored using AASM guidelines. Sleep Architecture The total recording time is 7 hrs, 51 min. The total sleep time is 6 hrs, 56 min. Sleep latency is 18 minutes. REM latency is 54 minutes. The patient had 8 episodes of waking. Sleep architecture shows 23.3% deep sleep, 53.7% light sleep, and (as % Total Sleep Time) showed NREM (Light 53.7%; Deep 23.3%), and a 23.0% stage REM. The patient spent 83.1% of total sleep time in the supine position. Sleep efficiency was 88.32. Respiratory Analysis The overall AHI (pAHI 3%:) is 5.2. The central AHI is 0.1. The AHI was 3.9 in NREM and 9.5 in REM sleep. The AHI was 5.9 in Supine and 1.7 in Non-supine sleep. Percent of Hoang Aldana respirations is 0.0. Oximetry Data The oxygen desaturation index (SERGEI 4%:) is 1.9. The mean saturation is 93%, and the lowest saturation is 87%. Time spent with saturation < 88% is 0.9 minutes. Snoring Profile Snoring average intensity is 41 dB. The patient snored above 45 decibels for 44.1 minutes, 10.6% of sleep time. Cardiac Profile The average pulse rate is 78 beats per minutes. The lowest pulse rate is 66 bpm. The highest pulse rate reported is 110 bpm. Atrial fibrillation was not detected. Premature beats occur <0.1 per minute. Assessment and Plan Assessment and Plan (1) Obstructive sleep apnea: Code(s): G47.33 - Obstructive sleep apnea (adult) (pediatric) Status: Acute Assessment and Plan: The patient had overall AHI of 5.2 with desaturation down to 87%. This is consistent with mild sleep apnea. Due to the patient's depression, she qualifies for treatment. I recommend that the patient be prescribed Resmed AutoPAP 5-15 cm H2O, CPAP mask/filters/tubing and heated humidity. A mandibular advancement dev ice is also an acceptable treatment option. This should be used with all episodes of sleep.? Compliance should be reviewed within 31-90 days of starting therapy for usage greater than 4 hours per night greater than 70% of the nights. The patient should be asked about symptoms such as?excessive daytime sleepiness, quality of sleep, decreased nocturia, increased?mental functioning such as memory, mood, and concentration. Data The data obtained during this sleep study is adequate for interpretation. Certification This sleep study has been reviewed by a board certified sleep medicine physician.
== END 2024-05-24 14:10 | disposition home or self-care (01) ==
PROVIDERS: PCP Nurse Practitioner Adult Health; Visit Provider Family Medicine
DX: G47.9 Sleep disorder, unspecified (principal); G47.33 Obstructive sleep apnea (adult) (pediatric)
CPT/HCPCS: 95800